=== PATIENT | female | born 1970 | race Caucasian/White ===

== ENCOUNTER 2017-09-25 11:39 | Emergency (ER) | payer MEDICAID ==
[2017-09-25 11:47] VITALS: BMI 32.5
[2017-09-25 11:50] VITALS: RESP 18; TEMP 97.9; O2SAT 99
[2017-09-25] MEDS ORDERED: TDAP Vaccine 0.5 mL Syr IM ONE (12:05)
--- NOTE | 2017-09-25 12:08 | ED PDOC ---
Arrival/HPI - General Chief Complaint: Trauma Time Seen by Provider: 09/25/17 12:04 Historian: Patient - History of Present Illness Narrative History of Present Illness (Text): 09/25/17 12:05 47 y/o female, no significant pmh, nkda, last tetanus doesn't remember, c/o rt. hand thumb laceration x 1 hour. Pt. stated that she was walking, tripped, landed on the rt. hand 1st digit thumb, sustained the laceration, no numbness or tingling, no difficulty bending or extending, no night sweat, no elbow or forearm pain, no palpitation, no head or neck injury, no other medical or psychological complaints. Past Medical History - Provider Review Nursing Documentation Reviewed: Yes - Infectious Disease Hx of Infectious Diseases: None - Tetanus Immunization Tetanus Immunization: Unknown - Past Medical History Past Medical History: No Previous - Cardiac Hx Cardiac Disorders: Yes (chest pain, sob episode 2013) - Pulmonary Hx Respiratory Disorders: Yes (snores at night) - Neurological Hx Neurological Disorder: No - HEENT Hx HEENT Disorder: No - Renal Hx Renal Disorder: No - Endocrine/Metabolic Hx Endocrine Disorders: No - Hematological/Oncological Hx Anemia: Yes (blood transfusion) - Integumentary Hx Dermatological Disorder: No - Musculoskeletal/Rheumatological Hx Falls: No - Gastrointestinal Other/Comment: Gastritis - Genitourinary/Gynecological Hx Genitourinary Disorders: Yes Other/Comment: no period for 2 or 3 yrs as per pt,hx of irregular menstruation - Psychiatric Hx Psychophysiologic Disorder: No Hx Emotional Abuse: No Hx Physical Abuse: No Hx Substance Use: No - Surgical History Hx Cardiac Catheterization: Yes (02/09/14) Other/Comment: bx terminal ileum 02/03/2014 - Anesthesia Hx Anesthesia Reactions: No Hx Malignant Hyperthermia: No - Suicidal Assessment Feels Threatened In Home Enviroment: No Family/Social History - Physician Review Nursing Documentation Reviewed: Yes Family/Social History: Unknown Family HX Smoking Status: Never Smoked Hx Alcohol Use: No Hx Substance Use: No Hx Substance Use Treatment: No Allergies/Home Meds Allergies/Adverse Reactions: Allergies No Known Allergies Allergy (Verified 11/01/14 18:20) Review of Systems - Review of Systems Constitutional: absent: Fatigue, Fevers Eyes: absent: Vision Changes ENT: absent: Hearing Changes Respiratory: absent: SOB, Cough Cardiovascular: absent: Chest Pain Gastrointestinal: absent: Abdominal Pain, Nausea, Vomiting Musculoskeletal: Arthralgias. absent: Back Pain, Neck Pain, Joint Swelling Skin: Laceration. absent: Rash, Pruritis, Skin Lesions, Abscess, Ulcer, Cellulitis Neurological: absent: Headache, Dizziness Psychiatric: absent: Anxiety, Depression, Suicidal Ideation Physical Exam Vital Signs Reviewed: Yes Vital Signs Temp Pulse Resp BP Pulse Ox 09/25/17 13:26 86 18 117/75 99 09/25/17 11:49 97.9 F 90 18 115/77 99 Temperature: Afebrile Blood Pressure: Normal Pulse: Regular Respiratory Rate: Normal Appearance: Positive for: Well-Appearing, Non-Toxic, Comfortable Pain Distress: Mild Mental Status: Positive for: Alert and Oriented X 3 - Systems Exam Head: Present: Atraumatic, Normocephalic Pupils: Present: PERRL Extroacular Muscles: Present: EOMI Conjunctiva: Present: Normal Mouth: Present: Moist Mucous Membranes Neck: Present: Normal Range of Motion Respiratory/Chest: Present: Clear to Auscultation, Good Air Exchange. No: Respiratory Distress, Accessory Muscle Use Cardiovascular: Present: Regular Rate and Rhythm, Normal S1, S2. No: Murmurs Abdomen: Present: Normal Bowel Sounds. No: Tenderness, Distention, Peritoneal Signs Back: Present: Normal Inspection Upper Extremity: Present: Normal Inspection, Other (Rt. hand: 1st digit thumb: visible approx. 2cm superficial laceration noted without nail involvement, FROM without limitation, no subgunal hematoma, sensation intact, motor 5/5, +radial pulse, capillary refill< 2 seconds, neurovascular intact. ). No: Cyanosis, Edema Lower Extremity: Present: Normal Inspection. No: Edema Neurological: Present: GCS=15, CN II-XII Intact, Speech Normal Skin: Present: Warm, Dry, Normal Color. No: Rashes Psychiatric: Present: Alert, Oriented x 3, Normal Insight, Normal Concentration Medical Decision Making ED Course and Treatment: 09/25/17 12:23 -tdap/keflex/tylenol -urine hcg -rt. hand/wrist xray -observe and reassess 09/25/17 13:31 -Urine hcg is negative -Xray rt. hand and rt. wrist show no acute fracture/dislocation. -Sensation intact, motor 5/5, wound irrigated with normal saline, clean with Betadine, sterile procedure as usual, 1% lidocaine with 3 mL with digit block, 5 -0 nylon suture made 6 sutures, hemostasis obtained, bacitracin apply, gauze dressing, sensation intact, motor 5/5, minimal blood loss, pt. tolerated the procedure well with no complication. Pain decreased and pt. feel much better. -Discharge home with keflex, bacitracin ointment, naproxen ,education on to keep the dressing and wound clean and dry for 2 days then clean with soap and water twice daily, apply Neosporin or bacitracin twice daily, keep the wound open at night starting day 3-4 as you are sleeping in a clean environment and not working which allow the wound to have proper air exposure to avoid moisture which this can delayed the wound healing, sutures need to be removed by day 11- 12, avoid strenuous exercise or activity, follow up with your own primary care doctors and specialist within 2 days, return to ER for any concerning/worsening signs or symptoms - RAD Interpretation Radiology Orders: 09/25/17 12:05 HAND RIGHT 3 VIEWS [RAD] Stat WRIST, RIGHT 3 VIEWS [RAD] Stat RT. wrist xray: HISTORY: fall COMPARISON: None. FINDINGS: BONES: Normal. No fracture. JOINTS: Normal. No dislocation. SOFT TISSUES: Normal. OTHER FINDINGS: None. IMPRESSION: Normal right wrist radiographs. PROCEDURE: Right Hand Radiographs. HISTORY: rt. hand thumb injury s/p fall with laceration COMPARISON: None. FINDINGS: BONES: Normal. No fracture. JOINTS: Normal. No osteoarthritic changes. SOFT TISSUES: Normal. OTHER FINDINGS: None. IMPRESSION: Normal right hand radiographs. [employer] Inspector: Radiologist - Medication Orders Current Medication Orders: Discontinued Medications Acetaminophen (Tylenol 325mg Tab) 650 mg PO STAT STA Stop: 09/25/17 12:06 Last Admin: 09/25/17 12:20 Dose: 650 mg Comments: Cephalexin Monohydrate (Keflex) 500 mg PO STAT STA PRN Reason: Protocol Stop: 09/25/17 12:06 Last Admin: 09/25/17 12:20 Dose: 500 mg Tetanus/Reduced Diphtheria/Acell Pertussis (Boostrix Vaccine Inj) 0.5 ml IM .ONCE ONE Stop: 09/25/17 12:06 Last Admin: 09/25/17 12:20 Dose: 0.5 ml Immunization Registry Document 09/25/17 12:20 EQ (Rec: 09/25/17 12:20 EQ [id number]) Immunization Registry Consent Date 08/04/17 - PA / [employer] STOCKER / Resident Statement MD/ has reviewed & agrees with the documentation as recorded. Disposition/Present on Arrival - Present on Arrival Any Indicators Present on Arrival: No History of DVT/PE: No History of Uncontrolled Diabetes: No Urinary Catheter: No History of Decub. Ulcer: No History Surgical Site Infection Following: None - Disposition Have Diagnosis and Disposition been Completed?: Yes Diagnosis: Fall, Finger laceration Disposition: HOME/ ROUTINE Disposition Time: 13:32 Patient Plan: Discharge Condition: GOOD Discharge Instructions (ExitCare): Laceration Repair Additional Instructions: -Discharge home with keflex, bacitracin ointment, naproxen ,education on to keep the dressing and wound clean and dry for 2 days then clean with soap and water twice daily, apply Neosporin or bacitracin twice daily, keep the wound open at night starting day 3-4 as you are sleeping in a clean environment and not working which allow the wound to have proper air exposure to avoid moisture which this can delayed the wound healing, sutures need to be removed by day 11- 12, avoid strenuous exercise or activity, follow up with your own primary care doctors and specialist within 2 days, return to ER for any concerning/worsening signs or symptoms Prescriptions: Bacitracin Ointment [Bacitracin] 1 appful TOP BID #15 g Cephalexin [cephalexin] 500 mg PO QID #40 cap Naproxen 500 mg PO BID PRN #20 tab PRN Reason: Other Referrals: Melissa Mcdowell MD [Primary Care Provider] - Follow up with primary Helena Campos MD [Staff Provider] - Follow up with primary Forms: WORK NOTE
[2017-09-25 13:27] VITALS: BP 117/75; PULSE 86
--- NOTE | 2017-09-25 13:34 | RAD ---
PROCEDURE: Right Wrist Radiographs. HISTORY: fall COMPARISON: None. FINDINGS: BONES: Normal. No fracture. JOINTS: Normal. No dislocation. SOFT TISSUES: Normal. OTHER FINDINGS: None. IMPRESSION: Normal right wrist radiographs.
--- NOTE | 2017-09-25 13:34 | RAD ---
PROCEDURE: Right Hand Radiographs. HISTORY: rt. hand thumb injury s/p fall with laceration COMPARISON: None. FINDINGS: BONES: Normal. No fracture. JOINTS: Normal. No osteoarthritic changes. SOFT TISSUES: Normal. OTHER FINDINGS: None. IMPRESSION: Normal right hand radiographs.
== END 2017-09-25 13:58 | disposition home or self-care (01) ==
LOC: ED 11:39
DX: S61.011A Laceration without foreign body of right thumb without damage to nail, initial encounter (principal); W01.0XXA Fall on same level from slipping, tripping and stumbling without subsequent striking against object, initial encounter; Z23 Encounter for immunization

== ENCOUNTER 2017-10-09 11:46 | Emergency (ER) | payer MEDICAID ==
[2017-10-09 11:47] VITALS: BMI 32.5
[2017-10-09 11:56] VITALS: TEMP 98.1
--- NOTE | 2017-10-09 12:43 | ED PDOC ---
Arrival/HPI - General Chief Complaint: Suture/Staple Removal Time Seen by Provider: 10/09/17 11:51 Historian: Patient - History of Present Illness Narrative History of Present Illness (Text): 10/09/17 12:40 47 y/o female, here for the suture removal from the rt. hand thumb x 2 week. Pt. stated that it healing well and dry, no numbness or tingling, no difficulty moving the thumb, no other medical or psychological complaints. Past Medical History - Provider Review Nursing Documentation Reviewed: Yes - Infectious Disease Hx of Infectious Diseases: None - Tetanus Immunization Tetanus Immunization: Unknown - Past Medical History Past Medical History: No Previous - Cardiac Hx Cardiac Disorders: Yes (chest pain, sob episode 2013) - Pulmonary Hx Respiratory Disorders: Yes (snores at night) - Neurological Hx Neurological Disorder: No - HEENT Hx HEENT Disorder: No - Renal Hx Renal Disorder: No - Endocrine/Metabolic Hx Endocrine Disorders: No - Hematological/Oncological Hx Anemia: Yes (blood transfusion) - Integumentary Hx Dermatological Disorder: No - Musculoskeletal/Rheumatological Hx Falls: No - Gastrointestinal Other/Comment: Gastritis - Genitourinary/Gynecological Hx Genitourinary Disorders: Yes Other/Comment: no period for 2 or 3 yrs as per pt,hx of irregular menstruation - Psychiatric Hx Psychophysiologic Disorder: No Hx Emotional Abuse: No Hx Physical Abuse: No Hx Substance Use: No - Surgical History Hx Cardiac Catheterization: Yes (02/09/14) Other/Comment: bx terminal ileum 02/03/2014 - Anesthesia Hx Anesthesia Reactions: No Hx Malignant Hyperthermia: No - Suicidal Assessment Feels Threatened In Home Enviroment: No Family/Social History - Physician Review Nursing Documentation Reviewed: Yes Family/Social History: Unknown Family HX Smoking Status: Never Smoked Hx Alcohol Use: No Hx Substance Use: No Hx Substance Use Treatment: No Allergies/Home Meds Allergies/Adverse Reactions: Allergies No Known Allergies Allergy (Verified 10/09/17 11:52) Review of Systems - Review of Systems Constitutional: absent: Fatigue, Fevers Respiratory: absent: SOB, Cough Cardiovascular: absent: Chest Pain Gastrointestinal: absent: Abdominal Pain, Nausea, Vomiting Skin: Laceration. absent: Rash, Pruritis Neurological: absent: Headache, Dizziness Physical Exam Vital Signs Reviewed: Yes Vital Signs Temp Pulse Resp BP Pulse Ox 10/09/17 11:53 98.1 F 91 H 19 116/77 97 Temperature: Afebrile Blood Pressure: Normal Pulse: Regular Respiratory Rate: Normal Appearance: Positive for: Well-Appearing, Non-Toxic, Comfortable Pain Distress: None Mental Status: Positive for: Alert and Oriented X 3 - Systems Exam Head: Present: Atraumatic, Normocephalic Pupils: Present: PERRL Neck: Present: Normal Range of Motion Respiratory/Chest: Present: Clear to Auscultation, Good Air Exchange. No: Respiratory Distress, Accessory Muscle Use Cardiovascular: Present: Regular Rate and Rhythm, Normal S1, S2. No: Murmurs Abdomen: No: Tenderness, Distention, Peritoneal Signs Back: Present: Normal Inspection Upper Extremity: Present: Normal Inspection, Other (Rt. hand thumb visible 6 sutures with the wound completely healed, no cellulitis or streaking, no ulcers , FROM without limitation, sensation intact, motor 5/5, +radial pulse, capillary refill< 2 seconds, neurovascular intact. ). No: Cyanosis, Edema Lower Extremity: Present: Normal Inspection. No: Edema Neurological: Present: GCS=15, Speech Normal Skin: Present: Warm, Dry, Normal Color. No: Rashes Psychiatric: Present: Alert, Oriented x 3, Normal Insight, Normal Concentration Medical Decision Making ED Course and Treatment: 10/09/17 12:42 -6 sutures removed, wound healing well and dry, no visible further sutures. -Discharge home with education on follow up with your own pmd within 2 days, return to the ER for any new or worsening signs or symptoms. - PA / HAIR COLORIST / Resident Statement MD/DO has reviewed & agrees with the documentation as recorded. Disposition/Present on Arrival - Present on Arrival Any Indicators Present on Arrival: No History of DVT/PE: No History of Uncontrolled Diabetes: No Urinary Catheter: No History of Decub. Ulcer: No History Surgical Site Infection Following: None - Disposition Have Diagnosis and Disposition been Completed?: Yes Diagnosis: Visit for suture removal Disposition: HOME/ ROUTINE Disposition Time: 12:44 Patient Plan: Discharge Condition: GOOD Additional Instructions: -Discharge home with education on follow up with your own pmd within 2 days, return to the ER for any new or worsening signs or symptoms. Referrals: Melissa Mcdowell MD [Primary Care Provider] - Follow up with primary Forms: WORK NOTE
[2017-10-09 13:01] VITALS: BP 118/80; PULSE 89; RESP 17; O2SAT 100
== END 2017-10-09 12:50 | disposition home or self-care (01) ==
LOC: ED 11:46
DX: Z48.02 Encounter for removal of sutures (principal)